=== PATIENT | male | born 1975 | race Caucasian/White ===

== ENCOUNTER 2017-05-11 11:56 | Emergency (ER) | payer OTHER ==
[~2017-05-11] VITALS: Ht 162.6 cm; Wt 77.0 kg
[2017-05-11] MEDS ORDERED: TRAMADOL HCL50 MG PO (13:34)
[2017-05-11] MEDS ORDERED: PREDNISONE50 MG PO (13:34)
[2017-05-11] MEDS ORDERED: SKELAXIN800 MG PO (13:34)
[2017-05-11 13:45] VITALS: BP 136/86
== END 2017-05-11 13:47 | disposition home or self-care (01) ==
LOC: EME 11:56
DX: M54.5 Low back pain (principal); M54.16 Radiculopathy, lumbar region
CPT/HCPCS: 99281; 99284

== ENCOUNTER 2017-06-28 20:44 | Emergency (ER) | payer OTHER ==
[~2017-06-28] VITALS: Ht 162.6 cm; Wt 76.8 kg
[~2017-06-28 20:44] MED LIST: PREDNISONE50 MG PO; SKELAXIN800 MG PO; TRAMADOL HCL50 MG PO
[2017-06-28] MEDS ORDERED: KEFLEX500 MG PO (23:16)
[2017-06-28] MEDS ORDERED: BACTRIM,SEPT1 TABLET PO (23:16)
[2017-06-28] MEDS ORDERED: ULTRACET1 TABLET PO (23:16)
[2017-06-28] MEDS ORDERED: MOTRIN800 MG PO (23:16)
[2017-06-28] MEDS ORDERED: BACTROBAN OINTM22 GM TP (23:16)
[2017-06-28 23:36] VITALS: BP 122/76
== END 2017-06-28 23:37 | disposition home or self-care (01) ==
LOC: RME 20:44 → EME 20:44 → RME 23:37
DX: L02.31 Cutaneous abscess of buttock (principal); L03.317 Cellulitis of buttock; R59.0 Localized enlarged lymph nodes
CPT/HCPCS: 99281; 99283